=== PATIENT | female | born 1990 | race Caucasian/White ===

== ENCOUNTER 2021-05-07 11:50 | Inpatient (IN) ==
[2021-05-07] MEDS ORDERED: Lactated Ringers 1000 ml BAG 1,000 ML IV ONE ×2 (12:16→13:42)
[2021-05-07] MEDS ORDERED: Buffered Lidocaine 1% SYRIN 1 ml INTRADERM ONE (12:16)
[2021-05-07] MEDS ORDERED: OBEPIDURAL 250 ML EPIDURAL ONE (12:24)
[2021-05-07 12:29] LABS: ABS Basophils 0.1 10^3/ul (0-0.2); ABS Lymphocytes 1.6 10^3/ul (1.0-4.8); ABS Monocytes 0.4 10^3/ul (0-0.8); ABS Neutrophils 3.6 10^3/ul (1.5-7.7); Eosinophil % 0.7 %; Hematocrit 36 % (35-47); Hemoglobin 12.1 g/dL (12.0-16.0); Lymphocyte % 27.7 %; Mean Corpuscular HGB Conc 34 g/dL (31-36); Mean Corpuscular Hemoglobin 28 pg (27-31); Mean Corpuscular Volume 83 fL (80-97); Mean Platelet Volume 9.2 fL (7.4-10.4); Nucleated Red Blood Cells % 0.1; Platelet Count 182 10^3/uL (150-450); Red Blood Count 4.29 10^6 /uL (3.70-4.87); Red Cell Distribution Width 16 % (10-15); White Blood Count 5.7 10^3/uL (3.5-10.8)
[2021-05-07] MEDS ORDERED: Lactated Ringers 1000 ml BAG 1,000 ML IV SCH ×2 (13:00→14:00)
[2021-05-07] MEDS ORDERED: Sodium Citrate/Citric Acid LIQ 15 ML UDC PO PRN (13:42)
[2021-05-07] MEDS ORDERED: Phenylephrine 40 mcg/mL 10mL (400mcg) SYRINGE IV PUSH PRN ×2 (13:42)
[2021-05-07] MEDS ORDERED: Lactated Ringers 1000 ml BAG 500 ML IV PRN ×2 (13:42)
[2021-05-07] MEDS ORDERED: EPHEDrine (Pressors) 50 MG/ML VIAL IV PUSH PRN ×2 (13:42)
[2021-05-07] MEDS ORDERED: OBEPIDURAL 250 ML EPIDURAL SCH (14:00)
[2021-05-07 14:18] LABS: Urine Benzodiazepine Screen None Detected (None Detect); Urine Cannabinoids Screen None Detected (None Detect); Urine Opiates Screen None Detected (None Detect)
[2021-05-07 14:19] LABS: Calcium 8.1 mg/dL (8.6-10.3); Potassium 4.2 mmol/L (3.5-5.0); Total Bilirubin 0.4 mg/dL (0.2-1.0)
[2021-05-07 14:25] LABS: Albumin/Globulin Ratio 1.1 (1-3); Globulin 2.8 g/dL (2-4); Total Protein 5.8 g/dL (6.4-8.9); Uric Acid 7.9 mg/dL (2.3-6.6)
[2021-05-07 14:28] LABS: Urine Appearance Clear; Urine Bilirubin Negative (Negative); Urine Blood Negative (Negative); Urine Color Yellow; Urine Glucose Negative (Negative); Urine Ketones Negative (Negative); Urine Nitrite Negative (Negative); Urine Protein 2+(100 mg/dL) (Negative); Urine Specific Gravity 1.006 (1.002-1.030); Urine Urobilinogen Negative (Negative)
[2021-05-07 14:46] LABS: Urine Bacteria Absent (Absent); Urine Red Blood Cell Absent (Absent); Urine Squamous Epithelial Cell Present (Absent); Urine White Blood Cell Absent (Absent)
[2021-05-07] MEDS ORDERED: Oxytocin in LR 0 UNITS/0 ML BAG IVPB ONE (18:02)
[2021-05-07] MEDS ORDERED: Dibucaine 1% OINT 28.35 GM TUBE ONE (18:38)
[2021-05-07] MEDS ORDERED: Witch Hazel PAD JAR ONE (18:39)
[2021-05-07] MEDS ORDERED: Measles, Mumps,Rubella VACC 0.5 ML/VIAL SUBCUT ONE (18:44)
[2021-05-07] MEDS ORDERED: Glycerin ADULT 2.4 gm SUPP PR PRN (18:44)
[2021-05-07] MEDS ORDERED: Lidocaine 1% VIAL 10 MG/ML VIAL ONE (20:24)
[2021-05-07] MEDS: Dibucaine 1% OINT 28.35 GM TUBE PR PRN (21:30)
[2021-05-07] MEDS: Witch Hazel PAD JAR TOPICAL PRN (21:31)
[2021-05-08 07:48] LABS: ABS Basophils 0.1 10^3/ul (0-0.2); ABS Lymphocytes 3.1 10^3/ul (1.0-4.8); ABS Monocytes 0.8 10^3/ul (0-0.8); Eosinophil % 0.1 %; Hematocrit 30 % (35-47); Lymphocyte % 28.5 %; Mean Corpuscular HGB Conc 34 g/dL (31-36); Mean Corpuscular Hemoglobin 28 pg (27-31); Mean Corpuscular Volume 85 fL (80-97); Mean Platelet Volume 8.7 fL (7.4-10.4); Platelet Count 145 10^3/uL (150-450); Red Blood Count 3.54 10^6 /uL (3.70-4.87); Red Cell Distribution Width 16 % (10-15)
[2021-05-08] MEDS: Benzocaine/Menthol LOZ PO PRN (21:47)
[2021-05-09] MEDS: Benzocaine/Menthol LOZ PO PRN ×2 (04:05→09:35)
[2021-05-09] MEDS: Witch Hazel PAD JAR TOPICAL PRN (09:23)
[2021-05-09] MEDS: Dibucaine 1% OINT 28.35 GM TUBE PR PRN (09:23)
[2021-05-09 12:48] VITALS: BP 147/89
== END 2021-05-09 15:34 | disposition home or self-care (01) | DRG 560 ==
LOC: MCHOBOUT 11:50 → MCHOB 12:07
PROVIDERS: ADMIT Midwife; ATTEND Midwife